=== PATIENT | female | born 1965 | race Asian ===

== ENCOUNTER 2016-07-13 04:25 | Emergency (ER) | payer OTHER ==
[~2016-07-13] VITALS: Ht 167.6 cm; Wt 63.5 kg
[2016-07-13] MEDS ORDERED: CLONIDINE HCL 0.1 MG TABLET ONE (05:30)
[2016-07-13 05:35] VITALS: BP 151/102
[2016-07-13] MEDS ORDERED: CLONIDINE HCL 0.1 MG TABLET PO ONE (06:00)
== END 2016-07-13 06:12 ==
LOC: ER 04:27
DX: Z02.89 Encounter for other administrative examinations (principal); F41.9 Anxiety disorder, unspecified
CPT/HCPCS: 99283; A4606; Z7610